=== PATIENT | male | born 1975 | race Two or more races ===

== ENCOUNTER 2016-06-24 17:47 | Emergency (ER) | payer MEDICAID ==
[~2016-06-24] VITALS: Ht 167.6 cm; Wt 77.1 kg
[~2016-06-24 17:47] MED LIST: VENTOLIN HFA18 GM INH
[2016-06-24 18:33] LABS: BASOPHILS % (AUTO) 0.4 % (0.0-2.0); EOSINOPHILS % (AUTO) 1.9 % (0.0-3.0); LYMPHOCYTES % (AUTO) 21.4 % (20.0-45.0); MEAN CORPUSCULAR HEMOGLOBIN 26.1 PG (27.0-31.0); MEAN CORPUSCULAR HGB CONC 32.5 G/DL (32.0-36.0); MEAN CORPUSCULAR VOLUME 80 FL (80-99); MEAN PLATELET VOLUME 6.5 FL (6.5-10.1); MONOCYTES % (AUTO) 7.9 % (1.0-10.0); NEUTROPHILS % (AUTO) 68.4 % (45.0-75.0); PLATELET COUNT 312 K/UL (150-450); RED BLOOD COUNT 4.49 M/UL (4.70-6.10); RED CELL DISTRIBUTION WIDTH 19.6 % (11.6-14.8); WHITE BLOOD COUNT 9.5 K/UL (4.8-10.8)
[2016-06-24 18:53] LABS: ACETAMINOPHEN < 10 ug/mL (10-30); ALANINE AMINOTRANSFERASE 35 U/L (3-41); ALBUMIN/GLOBULIN RATIO 1.5 (1.0-2.7); ALCOHOL < 10 mg/dL; ANION GAP 17 (5-15); ASPARTATE AMINO TRANSFERASE 43 U/L (5-40); CALCIUM 9.2 mg/dL (8.6-10.2); CARBON DIOXIDE 22 mEQ/L (20-30); CHLORIDE 102 mEQ/L (98-107); CREATININE 1.1 mg/dL (0.7-1.2); GLOMERULAR FILTRATION RATE > 60 mL/min (>60); HEMOLYSIS 2; POTASSIUM 3.5 mEQ/L (3.4-4.9); SODIUM 141 mEQ/L (135-145); TOTAL PROTEIN 6.4 g/dL (6.6-8.7)
[2016-06-24 19:14] VITALS: BP 129/73
[2016-06-24 21:20] VITALS: BP 124/76
--- NOTE | 2016-06-24 23:03 | Emergency Room Report ---
History of Present Illness General Chief Complaint: Behavioral Complaint Source: Patient (SHILPI ARNDT) Present Illness HPI The patient is a 40-year-old male with a stated psychiatric history of bipolar disorder and schizophrenia presenting for possible suicidal ideation. [employer] has placed the patient on a 5150 for running into traffic in an attempt to hurt himself. The patient states that he wants to overdose on medications in order to hurt himself. The patient states he has been feeling suicidal due to having no family or friends in this area. The patient states he has tried to commit suicide in the past by overdosing on medications. (SHILPI ARNDT) Allergies: Coded Allergies: No Known Allergies (Unverified , 06/25/16) Patient History Past Medical History: see triage record Pertinent Family History: none (SHILPI ARNDT) Nursing Documentation-[facility] Past Medical History: No History, Except For History Of Psychiatric Problem: Yes - Psych conditional (SHILPI ARNDT) Physical Exam Vital Signs Date Time Temp Pulse Resp B/P Pulse Ox O2 Delivery O2 Flow Rate FiO2 06/24/16 17:45 97.7 77 18 127/78 97 Room Air (SHILPI ARNDT.Michelle) Medical Decision Making Diagnostic Impression: Primary Impression: Behavioral change Additional Impression: Schizophrenia Qualified Codes: F20.0 - Paranoid schizophrenia ER Course Received signout from Dr Parry for dispo pending PET Patient seen by Dr Oliveira in ED + history of schizophrenia, paranoia, undomicled, no money Was found walking in traffic High risk for self-harm Recommends Psych hospital transfer Recommends PO risperdal which was given Klonopin as needed As per noon, 06/25, no available psych hospital beds. Will continue to monitor in ED (CALVIN MILLAN M.D.) Last Vital Signs Date Time Temp Pulse Resp B/P Pulse Ox O2 Delivery O2 Flow Rate FiO2 06/24/16 21:20 97.7 73 16 124/76 99 Room Air (SHILPI ARNDT.AAngelito) Status: improved (CALVIN MILLAN M.D.) Disposition: XFER TO PSYCH HOSP/UNIT Referrals: NOT CHOSEN IPA/,REFERRING (PCP) SHILPI ARNDT Jun 24, 2016 23:03 CALVIN MILLAN M.D. Jun 25, 2016 11:54
[2016-06-25] VITALS (11 sets, daily range): BP systolic 101–134; BP diastolic 54–88
== END 2016-06-25 20:53 ==
LOC: EDBD 17:47 → EDUNIT# 18:43 → EMR 18:43
DX: F91.9 Conduct disorder, unspecified (principal); F20.9 Schizophrenia, unspecified; F31.9 Bipolar disorder, unspecified; Z91.5 Personal history of self-harm
CPT/HCPCS: 36415; 80053; 80329; 85025; 99285

== ENCOUNTER 2019-10-02 00:31 | Emergency (ER) | payer MEDICAID ==
[2019-10-02] VITALS (7 sets, daily range): BP systolic 116–142; BP diastolic 72–87
[~2019-10-02] VITALS: Ht 167.6 cm; Wt 70.8 kg
[~2019-10-02 00:31] MED LIST changes: +ATIVAN1 MG ORAL; +CLONAZEPAM1 M1 PO; +FLUOXETINE20 MG/5 ML ORAL; +MIRTAZAPINE30 M1 ORAL; +[UNRECOGNIZED DRUG - OTHER]
--- NOTE | 2019-10-02 00:35 | NUR ---
ED Nurse Note: Pt brought into ED by GLENIS RA 826 and AB for behavioral complaint. Pt was found in his house and stated he wanted to kill himself. Pt placed on 5150 psych hold by AB. Per 5150 psych hold, pt had plan to kill himself with a handgun. Per pt with ERMD bedside, pt plan is to jump in front of a moving car. Pt is aaox4, breathing is normal and unlabored. Pt appears moderately anxious. He denies drug or alcohol use tonight. Pt has hx of schziophrenia, depression and anxiety. Pt notes previous suicide attempts in the past and previous psych hospitalizations. Pt changed into psych gown. Belongings taken from pt. All suicide precuations in place and RN bedside monitoring pt.
--- NOTE | 2019-10-02 00:45 | NUR ---
ED Nurse Note: Pt belongings locked in psych locker #2.
--- NOTE | 2019-10-02 00:59 | Emergency Room Report ---
History of Present Illness General Chief Complaint: Behavioral Complaint Present Illness HPI Disclaimer: Please note that this report is being documented using [employer] technology. This can lead to erroneous entry secondary to incorrect interpretation by the dictating instrument. HPI: 44-year-old male presents for suicidal ideations. He has a history of bipolar schizophrenia. Currently takes clonidine and clonazepam. Patient reports using methamphetamine today. He states he is having suicidal ideations with a plan to run into traffic. Denies pain nausea or vomiting. Patient last seen in the hospital about 1 week ago. PMH: Anxiety, bipolar, schizophrenia PSH: Reviewed Social Hx: Patient denies smoking, uses methamphetamine Allergies: Coded Allergies: FLUPHENAZINE (Verified Allergy, Unknown, 04/04/16) HALOPERIDOL (Verified Allergy, Unknown, 04/04/16) COVID-19 Screening Contact w/high risk pt: No Experienced COVID-19 symptoms?: No COVID-19 Testing performed MANAGER WELDING: No Patient History Reviewed Nursing Documentation: PMH: Agreed; PSxH: Agreed Nursing Documentation-PMH History Of Psychiatric Problem: Yes Review of Systems All Other Systems: negative except mentioned in HPI Physical Exam Vital Signs Date Time Temp Pulse Resp B/P (MAP) Pulse Ox O2 Delivery O2 Flow Rate FiO2 10/02/19 00:31 99.3 120 21 124/72 (89) 98 Room Air Sp02 EP Interpretation: reviewed, normal General Appearance: well appearing, no apparent distress Head: normocephalic, atraumatic Eyes: bilateral eye PERRL, bilateral eye EOMI ENT: hearing grossly normal, moist mucus membranes Neck: full range of motion, supple Respiratory: lungs clear, normal breath sounds, no rhonchi, no respiratory distress, no retraction, no wheezing Cardiovascular #1: normal peripheral pulses, no murmur, tachycardia Gastrointestinal: non tender, soft, non-distended, no guarding Neurologic: alert, oriented x3, no focal defects Psychiatric: anxious Suicide Risk Assessment: Suicidal Ideation: Yes Had intent to initiate attempt: No Pt's plan for suicide attempt: Yes Has means to complete attempt: No Skin: normal color, warm/dry Medical Decision Making Diagnostic Impression: Primary Impression: Suicidal ideations Additional Impression: 5150 hold ER Course Patient presents from home on a 5150 by police. He reports suicidal ideations with a plan to run into traffic. He did use methamphetamine today. He has been noncompliant with his psychiatric medications. I do believe his drug use is contributing to his suicidal ideations with drug-induced psychosis and anxiety. Ativan given in the ER. Medical clearance labs were sent. Laboratory studies showed evidence of methamphetamine in the urine drug screen otherwise no significant abnormalities. Patient is medically cleared for transfer to psychiatric facility. Laboratory Tests Test 10/02/19 00:40 10/02/19 01:35 White Blood Count 11.3 K/UL (4.8-10.8) H Red Blood Count 5.00 M/UL (4.70-6.10) Hemoglobin 12.6 G/DL (14.2-18.0) L Hematocrit 38.9 % (42.0-52.0) L Mean Corpuscular Volume 78 FL (80-99) L Mean Corpuscular Hemoglobin 25.3 PG (27.0-31.0) L Mean Corpuscular Hemoglobin Concent 32.5 G/DL (32.0-36.0) Red Cell Distribution Width 16.0 % (11.6-14.8) H Platelet Count 355 K/UL (150-450) Mean Platelet Volume 8.5 FL (6.5-10.1) Neutrophils (%) (Auto) 76.5 % (45.0-75.0) H Lymphocytes (%) (Auto) 14.8 % (20.0-45.0) L Monocytes (%) (Auto) 7.7 % (1.0-10.0) Eosinophils (%) (Auto) 0.1 % (0.0-3.0) Basophils (%) (Auto) 0.9 % (0.0-2.0) Sodium Level 137 MMOL/L (136-145) Potassium Level 3.7 MMOL/L (3.5-5.1) Chloride Level 101 MMOL/L (98-107) Carbon Dioxide Level 25 MMOL/L (21-32) Anion Gap 12 mmol/L (5-15) Blood Urea Nitrogen 19 mg/dL (7-18) H Creatinine 1.3 MG/DL (0.55-1.30) Estimated Glomerular Filtration Rate > 60 mL/min (>60) Glucose Level 107 MG/DL (74-106) H Calcium Level 9.1 MG/DL (8.5-10.1) Total Bilirubin 0.2 MG/DL (0.2-1.0) Aspartate Amino Transferase (AST) 32 U/L (15-37) Alanine Aminotransferase (ALT) 33 U/L (12-78) Alkaline Phosphatase 92 U/L (46-116) Total Protein 7.9 G/DL (6.4-8.2) Albumin 4.0 G/DL (3.4-5.0) Globulin 3.9 g/dL Albumin/Globulin Ratio 1.0 (1.0-2.7) Salicylates Level 0.8 ug/mL (2.8-20) L Acetaminophen Level < 2 MCG/ML (10-30) L Serum Alcohol < 3 mg/dL Urine Color Pale yellow Urine Appearance Clear Urine pH 5 (4.5-8.0) Urine Specific [place] 1.020 (1.005-1.035) Urine Protein Negative (NEGATIVE) Urine Glucose (UA) Negative (NEGATIVE) Urine Ketones Negative (NEGATIVE) Urine Blood 2+ (NEGATIVE) H Urine Nitrite Negative (NEGATIVE) Urine Bilirubin Negative (NEGATIVE) Urine Urobilinogen Normal MG/DL (0.0-1.0) Urine Leukocyte Esterase Negative (NEGATIVE) Urine RBC 2-4 /HPF (0 - 0) H Urine WBC 0 /HPF (0 - 0) Urine Squamous Epithelial Cells None /LPF (NONE/OCC) Urine Bacteria None /HPF (NONE) Urine Opiates Screen Negative (NEGATIVE) Urine Barbiturates Screen Negative (NEGATIVE) Phencyclidine (PCP) Screen Negative (NEGATIVE) Urine Amphetamines Screen Positive (NEGATIVE) H Urine Benzodiazepines Screen Negative (NEGATIVE) Urine Cocaine Screen Negative (NEGATIVE) Urine Marijuana (THC) Screen Negative (NEGATIVE) Last Vital Signs Date Time Temp Pulse Resp B/P (MAP) Pulse Ox O2 Delivery O2 Flow Rate FiO2 10/02/19 00:31 99.3 120 21 124/72 (89) 98 Room Air Status: improved Disposition: PSYCH HOSP/UNIT Condition: Stable Azam Starr M.D. Oct 02, 2019 00:59
[2019-10-02] MEDS ORDERED: LORazepam 1mg tab ORAL ONE ×4 (01:00→20:00)
[2019-10-02 01:16] LABS: BASOPHILS % (AUTO) 0.9 % (0.0-2.0); EOSINOPHILS % (AUTO) 0.1 % (0.0-3.0); HEMATOCRIT 38.9 % (42.0-52.0); HEMOGLOBIN 12.6 G/DL (14.2-18.0); LYMPHOCYTES % (AUTO) 14.8 % (20.0-45.0); MEAN CORPUSCULAR VOLUME 78 FL (80-99); MONOCYTES % (AUTO) 7.7 % (1.0-10.0); NEUTROPHILS % (AUTO) 76.5 % (45.0-75.0); PLATELET COUNT 355 K/UL (150-450); WHITE BLOOD COUNT 11.3 K/UL (4.8-10.8)
[2019-10-02 01:31] LABS: ANION GAP 12 mmol/L (5-15); BLOOD UREA NITROGEN 19 mg/dL (7-18); CALCIUM 9.1 MG/DL (8.5-10.1); CARBON DIOXIDE 25 MMOL/L (21-32); CHLORIDE 101 MMOL/L (98-107); CREATININE 1.3 MG/DL (0.55-1.30); POTASSIUM 3.7 MMOL/L (3.5-5.1); SODIUM 137 MMOL/L (136-145)
[2019-10-02 01:34] LABS: ALANINE AMINOTRANSFERASE 33 U/L (12-78); ALKALINE PHOSPHATASE 92 U/L (46-116); ASPARTATE AMINO TRANSFERASE 32 U/L (15-37); BILIRUBIN,TOTAL 0.2 MG/DL (0.2-1.0)
[2019-10-02 01:41] LABS: APPEARANCE,URINE CLEAR; BILIRUBIN, URINE NEGATIVE (NEGATIVE); COLOR,URINE PALE YELLOW; GLUCOSE, URINE (UA) NEGATIVE (NEGATIVE); KETONES,URINE NEGATIVE (NEGATIVE); LEUKOCYTE ESTERASE ,URINE NEGATIVE (NEGATIVE); NITRITE,URINE NEGATIVE (NEGATIVE); PH,URINE 5 (4.5-8.0); PROTEIN,URINE NEGATIVE (NEGATIVE); UROBILINOGEN,URINE NORMAL MG/DL (0.0-1.0)
--- NOTE | 2019-10-02 02:00 | NUR ---
ED Nurse Note: Pt is awake and alert in bed. He is acting appropriately with RN and following commands. Pt provided with warm blanket and PO fluids. Pt is in no acute distress, breathing is normal and unlabored. RN bedside with suicide precuations in place. Will continue to closely monitor.
--- NOTE | 2019-10-02 03:00 | NUR ---
HAND-OFF: Report given to KOBI Martin and endorsed plan of care. Pt is in no acute distress.
--- NOTE | 2019-10-02 05:30 | NUR ---
ED Nurse Note: Pt resting with eyes closed, non-labored breathing, no signs of distress, sitter present, will continue to monitor, VSS
--- NOTE | 2019-10-02 07:10 | NUR ---
ED Nurse Note: Received patient in bed, patient is alert awake x4 ambulatory steady gait, cooperative at this time. patient provided with breakfast and water.
--- NOTE | 2019-10-02 08:00 | NUR ---
ED Nurse Note: patient still reports being impulsive and hearing voices to throw himself in the middle of traffic to kill himself. notfiied to Sharona HOPE
--- NOTE | 2019-10-02 09:40 | NUR ---
ED Nurse Note: patient reports feeling anxious and requesting for medication. notified to Dr. Koehler. patient's vitals signs remains stable. patient remains cooperative.
--- NOTE | 2019-10-02 10:01 | NUR ---
ED Nurse Note: covid 19 rapid test done and sent to lab.
--- NOTE | 2019-10-02 12:59 | NUR ---
ED Nurse Note: lunch provided to the patient, sitter at bedside.
--- NOTE | 2019-10-02 18:27 | NUR ---
HAND-OFF: Report given to Heather PEACE.
--- NOTE | 2019-10-02 18:35 | NUR ---
ED Nurse Note: Report received from KOBI Sellers. pt is in bed resting, no acute distress is noted. VSS as documented. Sitter at bedside.
--- NOTE | 2019-10-02 19:05 | NUR ---
ED Nurse Note: Report given to KOBI Easton. Endorsed pplan of care.
--- NOTE | 2019-10-02 19:10 | NUR ---
ED Nurse Note: Report received from KOBI Quintero. Pt is aaox4, laying in bed and is being cooperative at this time. RN bedside, suicide precuations remain in place.
--- NOTE | 2019-10-02 19:45 | NUR ---
ED Nurse Note: Pt is requesting ativan, ERMD made aware.
--- NOTE | 2019-10-02 20:04 | NUR ---
ED Nurse Note: Sitter is bedside observing pt.
--- NOTE | 2019-10-02 20:45 | NUR ---
ED Nurse Note: PO fluids and sandwhich provided to pt. Pt is in no acute distress. Sitter remains bedside observing pt. Pt is calm and cooperative.
--- NOTE | 2019-10-02 22:30 | NUR ---
ED Nurse Note: Pt is sitting on bed. Pt is breathing normal and unlabored. NAD. Thompson is bedside with suicide precuations and safety measures in place. Pt is repeatedly asking to smoke cigarettes, pt instructed he is unable to do so at this time. He is following commands and being cooperative.
--- NOTE | 2019-10-02 22:55 | NUR ---
ED Nurse Note: SHEREEN spoke with pt. Will administer nicotine patch.
--- NOTE | 2019-10-02 23:30 | NUR ---
ED Nurse Note: Pt is using telephone as requested with RN and sitter observing pt.
--- NOTE | 2019-10-03 01:00 | NUR ---
ED Nurse Note: Pt is walking out of room and approaching nurses station. Pt is requesting to leave. He appears agitated that he has not been placed yet, otherwise no acute distress noted. SHEREEN spoke with pt multiple times. Pt escorted back to room by RN and sitter. Sitter remains bedside with pt. Will continue to closely monitor.
[2019-10-03 02:00] VITALS: BP 129/78
[2019-10-03] MEDS ORDERED: LORazepam 1mg tab ORAL ONE ×2 (02:30→05:45)
--- NOTE | 2019-10-03 02:30 | NUR ---
ED Nurse Note: Pt is agitated that he is on a 5150 psych hold. ERMD ordered medication. Pt refused PO medication, ERMD made aware. Pt is in room with sitter bedside. Suicide precuations remain in place. Pt stating "you can't festeban keep me here".
--- NOTE | 2019-10-03 03:50 | NUR ---
ED Nurse Note: Pt appears to be more calm at this time. NAD. Pt is in bed with RN bedside as sitter. All safety precuations remain in place.
--- NOTE | 2019-10-03 05:00 | NUR ---
ED Nurse Note: Pt used restroom with sitter observing pt. No complications noted.
[2019-10-03 05:15] VITALS: BP 128/78
--- NOTE | 2019-10-03 05:40 | NUR ---
ED Nurse Note: Pt is requesting ativan. ERMD aware. Pt is in room, resting in bed. Sitter is bedside observing pt. Pt also provided with PO fluids.
--- NOTE | 2019-10-03 07:05 | NUR ---
HAND-OFF: Report given to KOBI Grimes.
--- NOTE | 2019-10-03 07:28 | NUR ---
ED Nurse Note:pt. is awake and anxious about going home sooner, no SI/HI voiced at this time, non compliant with mask wearing, sitter is at the room
[2019-10-03 10:56] VITALS: BP 130/81
--- NOTE | 2019-10-03 11:00 | NUR ---
ED Nurse Note: Dr. Abdullahi at bedside for further evaluation. Pt stated denies SI/HI. Dr. Abdullahi offered anti psychotic medication but patient refused and said he is allergic to all anti psychotic meds. Dr Abdullahi dc hold.
[2019-10-03 11:26] VITALS: BP 127/74
--- NOTE | 2019-10-03 11:26 | NUR ---
ED Nurse Note: Pt cleared by ERMD for discharge. DC instructions was given and explained to pt and verbalized understanding of teachings. All medical deviecs such as ID band removed. Pt is AAO x4, ambulatory and left with all personal belongings. Pt was provided with psych resources. Pt took the bus.
--- NOTE | 2019-10-03 16:45 | Consultation ---
DATE OF CONSULTATION: 10/03/2019 CONSULTING PHYSICIAN: Howard Oliveira MD. HISTORY OF PRESENT ILLNESS: This patient is well known to me from previous admissions to the hospital. Patient has a history of bipolar disorder and methamphetamine abuse. Patient was admitted on a 5150 to our ER. He called 911 and told the police that he wants to end his life. Upon evaluation, patient was having racing thoughts. He was very irritable and agitated. He kept perseverating that he wants to be discharged. He insisted that he is not having any suicidal thoughts and he was under the influence of meth. He has been observed in our ER for the past 24 hours and is not endorsing any aggressive behaviors. He is somewhat paranoid and insisting that he wants to go back to his home. He lives close to the hospital with a roommate. He is on SSI. He has a psychiatrist at [facility], . I called him and left him a message. Patient has not seen his doctor regularly and is not taking medication. He is telling me that he is allergic to all antipsychotics. He is not presenting with any depressive symptoms. He is having racing thoughts, difficult to interrupt, and has poor impulse control; however, is not an imminent danger to self or others. PAST PSYCHIATRIC HISTORY: He has several psychiatric hospitalizations, diagnosed with bipolar, noncompliant with treatment, and self-medicates drugs. PAST MEDICAL HISTORY: Nonsignificant. ALLERGIES: He stated that he is allergic to all antipsychotics and all mood stabilizers. SUBSTANCE USE HISTORY: He denies drug use; however, his system positive for methamphetamine. MENTAL STATUS EXAMINATION: Alert, oriented x4. Mood is angry. Affect is flat. Thought process, tangential. Thought content, no suicidal or homicidal ideation. Cognition is intact. Insight and judgment is limited. ASSESSMENT: [place] I Methamphetamine dependence. Bipolar disorder. [place] II Deferred. [place] III None. [place] IV Low. [place] V 50. PLAN: 1. Patient is refusing antipsychotics. 2. Patient is not an imminent danger to self or others. 3. We will lift the 5150 hold. 4. Patient will be discharged to follow up with his psychiatrist. Howard Oliveira M.D. DR: KAREEN JOB#: [id number] CC:
== END 2019-10-03 11:30 | disposition home or self-care (01) ==
LOC: EDBD 00:31 → EMR 01:01
DX: R45.851 Suicidal ideations (principal); F15.20 Other stimulant dependence, uncomplicated; Z88.8 Allergy status to other drugs, medicaments and biological substances; F31.9 Bipolar disorder, unspecified; F41.9 Anxiety disorder, unspecified; F20.9 Schizophrenia, unspecified; Z91.14 Patient's other noncompliance with medication regimen
CPT/HCPCS: 36415; 80053; 80307; 81003; 85025; G0480; G0481; U0002; Z7502; 99284

== ENCOUNTER 2019-10-04 06:49 | Emergency (ER) | payer MEDICAID ==
[~2019-10-04] VITALS: Ht 170.2 cm; Wt 79.4 kg
[2019-10-04 07:17] VITALS: BP 124/75
[2019-10-04 07:21] LABS: BASOPHILS % (AUTO) 1.3 % (0.0-2.0); EOSINOPHILS % (AUTO) 1.9 % (0.0-3.0); HEMATOCRIT 39.1 % (42.0-52.0); HEMOGLOBIN 12.5 G/DL (14.2-18.0); LYMPHOCYTES % (AUTO) 21.9 % (20.0-45.0); MEAN CORPUSCULAR VOLUME 77 FL (80-99); NEUTROPHILS % (AUTO) 61.9 % (45.0-75.0); PLATELET COUNT 334 K/UL (150-450); RED CELL DISTRIBUTION WIDTH 15.9 % (11.6-14.8); WHITE BLOOD COUNT 10.4 K/UL (4.8-10.8)
[2019-10-04 07:26] LABS: ANION GAP 9 mmol/L (5-15); BLOOD UREA NITROGEN 18 mg/dL (7-18); CALCIUM 8.9 MG/DL (8.5-10.1); CARBON DIOXIDE 28 MMOL/L (21-32); CHLORIDE 102 MMOL/L (98-107); CREATININE 1.1 MG/DL (0.55-1.30); POTASSIUM 3.8 MMOL/L (3.5-5.1); SODIUM 139 MMOL/L (136-145)
[2019-10-04 07:30] LABS: ALANINE AMINOTRANSFERASE 38 U/L (12-78); ALBUMIN 3.7 G/DL (3.4-5.0); ALKALINE PHOSPHATASE 87 U/L (46-116); ASPARTATE AMINO TRANSFERASE 21 U/L (15-37); BILIRUBIN,TOTAL 0.5 MG/DL (0.2-1.0)
--- NOTE | 2019-10-04 07:45 | Emergency Room Report ---
History of Present Illness General Chief Complaint: Chest Pain Source: Patient Present Illness HPI Disclaimer: Please note that this report is being documented using [employer] technology. This can lead to erroneous entry secondary to incorrect interpretation by the dictating instrument. HPI: 44-year-old male history of bipolar disorder, schizophrenia presented for ported chest pain. Patient recently at this facility for suicidal ideations was on a 5150 hold was seen by psychiatry who did break the hold. He was picked up from the street today by EMS. He reports nonspecific chest pain. Does report amphetamine. No shortness of breath nausea or vomiting. Vital signs stable on arrival. Patient denies any cardiac history. PMH: Hypertension, bipolar disorder schizophrenia PSH: Reviewed Social Hx: Patient uses methamphetamine Allergies: Coded Allergies: ARIPIPRAZOLE (Unverified Allergy, Unknown, 10/04/19) CLONIDINE (Unverified Allergy, Unknown, 10/04/19) FLUPHENAZINE (Verified Allergy, Unknown, 04/04/16) HALOPERIDOL (Verified Allergy, Unknown, 04/04/16) COVID-19 Screening Contact w/high risk pt: No Experienced COVID-19 symptoms?: No COVID-19 Testing performed PATIENT ACCOUNTS SPECIALIST: No Patient History Reviewed Nursing Documentation: PMH: Agreed; PSxH: Agreed Nursing Documentation-PMH Past Medical History: No History, Except For Review of Systems All Other Systems: negative except mentioned in HPI Physical Exam Vital Signs Date Time Temp Pulse Resp B/P (MAP) Pulse Ox O2 Delivery O2 Flow Rate FiO2 10/04/19 06:49 97.9 96 19 133/88 (103) 99 Room Air Sp02 EP Interpretation: reviewed, normal General Appearance: well appearing, no apparent distress Head: normocephalic, atraumatic Eyes: bilateral eye PERRL, bilateral eye EOMI ENT: hearing grossly normal, moist mucus membranes Neck: full range of motion, supple Respiratory: lungs clear, normal breath sounds, no rhonchi, no respiratory distress, no retraction, no wheezing Cardiovascular #1: normal peripheral pulses, regular rate, rhythm, no murmur Gastrointestinal: non tender, soft, non-distended, no guarding Neurologic: alert, oriented x3, no focal defects Psychiatric: no suicidal/homicidal ideation Skin: normal color, warm/dry Medical Decision Making Diagnostic Impression: Primary Impression: Atypical chest pain Additional Impression: Methamphetamine abuse ER Course MDM: Patient presented with reported chest pain. On arrival vital signs stable patient in no acute distress. Differential included anxiety, methamphetamine abuse, less likely ACS. EKG normal sinus rhythm. Laboratory studies showed no acute process. Low suspicion for emergent medical process at this time. Patient will be discharged to self-care. Recommended abstaining from methamphetamine use. Return precautions were given. Laboratory Tests Test 10/04/19 07:00 White Blood Count 10.4 K/UL (4.8-10.8) Red Blood Count 5.10 M/UL (4.70-6.10) Hemoglobin 12.5 G/DL (14.2-18.0) L Hematocrit 39.1 % (42.0-52.0) L Mean Corpuscular Volume 77 FL (80-99) L Mean Corpuscular Hemoglobin 24.4 PG (27.0-31.0) L Mean Corpuscular Hemoglobin Concent 31.8 G/DL (32.0-36.0) L Red Cell Distribution Width 15.9 % (11.6-14.8) H Platelet Count 334 K/UL (150-450) Mean Platelet Volume 7.5 FL (6.5-10.1) Neutrophils (%) (Auto) 61.9 % (45.0-75.0) Lymphocytes (%) (Auto) 21.9 % (20.0-45.0) Monocytes (%) (Auto) 13.0 % (1.0-10.0) H Eosinophils (%) (Auto) 1.9 % (0.0-3.0) Basophils (%) (Auto) 1.3 % (0.0-2.0) Sodium Level 139 MMOL/L (136-145) Potassium Level 3.8 MMOL/L (3.5-5.1) Chloride Level 102 MMOL/L (98-107) Carbon Dioxide Level 28 MMOL/L (21-32) Anion Gap 9 mmol/L (5-15) Blood Urea Nitrogen 18 mg/dL (7-18) Creatinine 1.1 MG/DL (0.55-1.30) Estimated Glomerular Filtration Rate > 60 mL/min (>60) Glucose Level 92 MG/DL (74-106) Calcium Level 8.9 MG/DL (8.5-10.1) Total Bilirubin 0.5 MG/DL (0.2-1.0) Aspartate Amino Transferase (AST) 21 U/L (15-37) Alanine Aminotransferase (ALT) 38 U/L (12-78) Alkaline Phosphatase 87 U/L (46-116) Troponin I 0.000 ng/mL (0.000-0.056) Total Protein 7.4 G/DL (6.4-8.2) Albumin 3.7 G/DL (3.4-5.0) Globulin 3.7 g/dL Albumin/Globulin Ratio 1.0 (1.0-2.7) Plan- EKG Diagnostic Results Rate: normal Rhythm: NSR ST Segments: no acute changes Other Impression Normal sinus rhythm Last Vital Signs Date Time Temp Pulse Resp B/P (MAP) Pulse Ox O2 Delivery O2 Flow Rate FiO2 10/04/19 07:17 98.0 88 20 124/75 98 Room Air Status: improved Disposition: HOME, SELF-CARE Condition: Stable Azam Starr M.D. Oct 04, 2019 07:45
[2019-10-04 08:13] VITALS: BP 129/86
--- NOTE | 2019-10-04 13:41 | Diagnostic Imaging Report ---
Indication: Chest pain Technique: One view of the chest Comparison: none Findings: Lungs and pleural spaces are clear. Heart size is normal. Impression: No acute process
== END 2019-10-04 08:13 | disposition home or self-care (01) ==
LOC: EDBD 06:49 → EMR 07:15
DX: R07.89 Other chest pain (principal); F15.10 Other stimulant abuse, uncomplicated; I10 Essential (primary) hypertension; F31.9 Bipolar disorder, unspecified; F20.9 Schizophrenia, unspecified; Z88.8 Allergy status to other drugs, medicaments and biological substances
CPT/HCPCS: 36415; 71045; 80053; 84484; 85025; 93005; Z7502; 99283